=== PATIENT | female | born 1955 | race Caucasian/White ===

== ENCOUNTER 2024-05-02 11:14 | Observation (INO) ==
--- NOTE | 2024-05-02 11:42 | ED.PDOC ---
General ED Provider: Dr. SHANT HANCOCK MD Chief Complaint: Respiratory Complaint Stated Complaint: 68 yo WF complains of a head cold for 1.5 weeks that involves blowing her nose, nasal drainage and now had gone down to her lungs. Coughing a lot at time and productive of some yellow sputum. Some wheezing. No fever. No headache or chest pain. Known COPD and still smokes 1 PPD. Uses Breztri as maintainence and a rescue inhaler she occ uses once or twice daily as needed. No flu vaccine. Hx of heart ablation. No DM. Hx of HTN and lipid problem. Time Seen by Provider: 05/02/24 11:17 Mode of Arrival: Walk-In Information Source: Patient Exam Limitations: No limitations Referred to ED by: Other (Self) Nursing and Triage Documentation Reviewed and Agree: Yes Does Patient Take Opioids?: No What is Opioid Naive?: *Opioid Naive implies the patient is not already taking opioids or not chronically receiving opioids on a daily basis. *PRN dosing is not "usually" associated with tolerance. *Patients are at higher risk of over-sedation and aspiration. What is Opioid Tolerant?: *Opioid Tolerance implies less than the expected response to an opioid. *Acquired tolerance is defined by the patient taking 60mg of oral morphine daily (or equianalgesic dose of another opioid) for 1 week or more. *Often associated with chronic pain. *May take more than usual dose to achieve desired pain control. Review of Systems Review Of Systems Constitutional: Denies Chills, Diaphoresis, Fever, Sweats or Loss of appetite Eyes: Reports No symptoms and Photophobia Ears, Nose, Mouth, Throat: Denies Ear pain, Ear discharge, Nose discharge or Throat pain Respiratory: Reports Cough, Shortness of Breath and Wheezing Cardiac: Denies Chest pain or Edema GI: Reports Abdominal pain (abdominal pain yesterday but none currently) and Diarrhea : Denies Burning or Dysuria Musculoskeletal: Reports No symptoms Skin: Reports No symptoms Neurological: Denies Anxiety, Cognitive dysfunction or Headache [facility] Medical History Tachycardia R00.0 - Tachycardia, unspecified (ICD-10) COPD (chronic obstructive pulmonary disease) J44.9 - Chronic obstructive pulmonary disease, unspecified (ICD-10) Hyperlipidemia E78.5 - Hyperlipidemia, unspecified (ICD-10) Hypertension I10 - Essential (primary) hypertension (ICD-10) Female Reproductive History Menstrual Hx Hysterectomy: Yes Hx Tubal Ligation: No Physical Exam Physical Exam Appearance: Reports No pain distress and Well-nourished Ill-appearing: None Pain Distress: None Eyes: Reports EOMI and Conjunctiva clear ENT: Reports Nose normal and Oropharynx normal Neck: Supple Respiratory: Reports Breath sounds equal, Breath sounds diminished (Markedly diminished breath sounds) and Wheezes Cardiovascular: Reports RRR, Pulses normal, No rub and No murmur GI/: Reports Soft, Nontender and No masses Musculoskeletal: Reports Normal strength, ROM intact and No edema Skin: Reports Warm and Normal color Neurological: Reports Sensation intact, Motor intact, Cranial nerves intact and Oriented Psychiatric: Reports Affect appropriate and Mood appropriate Interpretation EKG Interpretation EKG Interpretation By: ED Physician Time of EKG #1: 12:44 Rate: Normal Rhythm: Sinus Ectopy: None [place]: [place] ST Segment: Normal Interpretation: NSR, Normal axis, Septal infarct, age undetermined, Abnormal EKG Course Course 05/02/24 11:40 05/02/24 11:40 Orders, Labs, Meds: Lab Review 05/02/24 05/02/24 11:35 11:40 WBC 8.71 RBC 4.15 L Hgb 12.2 Hct 35.6 L MCV 85.8 MCH 29.4 MCHC 34.3 RDW Coeff of Rosa 11.0 L Plt Count 227 Immature Gran % (Auto) 0.8 Neut % (Auto) 70.7 Lymph % (Auto) 21.1 [place] % (Auto) 6.5 Eos % (Auto) 0.6 Baso % (Auto) 0.3 Neut # (Auto) 6.2 Lymph # (Auto) 1.8 [place] # (Auto) 0.6 Eos # (Auto) 0.1 Baso # (Auto) 0.0 Immature Gran # (Auto) 0.1 Sodium 120.7 L Potassium 4.19 Chloride 85.1 L Carbon Dioxide 29.2 Anion Gap 10.59 BUN 8.8 Creatinine 0.75 Estimated GFR (MDRD) 77.00 BUN/Creatinine Ratio 11.73 Glucose 119.1 H Calcium 8.76 Total Bilirubin 0.68 AST 32.5 ALT 19.4 Alkaline Phosphatase 113.8 Troponin I < 0.012 Total Protein 7.85 Albumin 4.30 Globulin 3.55 Albumin/Globulin Ratio 1.21 Influ A Molecular Assay Negative by naat Influ B Molecular Assay Negative by naat SARS CoV-2 RNA Rapid LUIS FERNANDO Negative Orders Category Date Time Status EKG-(ED ONLY) Stat CARDIO 05/02/24 12:39 Completed NEBULIZER TREATMENT Routine CARDIO 05/02/24 12:35 Completed Saline Lock [ED IV/MEDIPORT/POWERPORT] .ONCE EMERGENCY 05/02/24 11:31 Active CBC W/ AUTO DIFF Stat LAB 05/02/24 11:40 Completed CMP [COMPREHENSIVE METABOLIC PANEL] Stat LAB 05/02/24 11:40 Completed COVID [SARS COV-2 RNA RAPID LUIS FERNANDO] Stat LAB 05/02/24 11:35 Completed FLU A & B MOLECULAR [FLU A/B MOLECULAR] Stat LAB 05/02/24 11:35 Completed TROPONIN I Stat LAB 05/02/24 11:40 Completed 0.9 % Sodium Chloride [Saline Flush] Meds 05/02/24 11:31 Active 1 syr IVF PRN PRN Albuterol Sulfate 0.083% Neb [Albuterol 0.083% Neb] Meds 05/02/24 13:00 Active 2.5 mg NEB Q30MIN Ipratropium/Albuterol Neb [Duoneb] Meds 05/02/24 11:31 Discontinued 3 ml NEB ONCE ONE Methylprednisolone Sod Succ/Pf [Solu-Medrol 40 mg] Meds 05/02/24 11:31 Discontinued 80 mg IVP ONCE ONE Ondansetron HCl/Pf [Zofran Sdv] Meds 05/02/24 12:04 Discontinued 4 mg IVP ONCE ONE Sodium Chloride 0.9% [Sodium Chloride] 1,000 ml Meds 05/02/24 12:33 Active IV 250 mls/hr CHEST, 2 VIEWS PA & LAT Stat RADS 05/02/24 11:31 Completed Medications Generic Name Dose Route Start Last Admin Trade Name Freq PRN Reason Stop Dose Admin Albuterol Sulfate 2.5 mg 05/02/24 13:00 05/02/24 13:53 Albuterol Sulfate 0.083% Vial.Neb NEB 2.5 mg Q30MIN ANAYA Administration Sodium Chloride 1,000 mls @ 250 mls/hr 05/02/24 12:33 05/02/24 13:58 Sodium Chloride IV 05/02/24 16:32 250 mls/hr .Q4H ONE Administration Sodium Chloride 1 syr 05/02/24 11:31 05/02/24 11:53 0.9% Sodium Chloride 10 Ml Disp.Syrin IVF 1 syr PRN PRN Administration To flush IV Discontinued Medications Generic Name Dose Route Start Last Admin Trade Name Freq PRN Reason Stop Dose Admin Albuterol/Ipratropium 3 ml 05/02/24 11:31 05/02/24 11:54 Ipratropium/Albuterol Vial.Neb NEB 05/02/24 11:32 3 ml ONCE ONE Administration Methylprednisolone Sodium Succinate 80 mg 05/02/24 11:31 05/02/24 11:52 Methylprednisolone Sod Succ/Pf 40 Mg/Ml Vial IVP 05/02/24 11:32 80 mg ONCE ONE Administration Ondansetron HCl 4 mg 05/02/24 12:04 05/02/24 12:07 Ondansetron Hcl/Pf 4 Mg/2 Ml Sdv IVP 05/02/24 12:05 4 mg ONCE ONE Administration I placed my stethoscope in her ear and have her listen to her lungs compared to mine and discussed lung lungs is "disappearing" in term of surface area for gas exchange to impart the meaning of what she is doing when she continues to smoke. Vital Signs: Temp Pulse Resp BP Pulse Ox 05/02/24 11:18 97.5 F L 76 20 185/84 H 99 Discharge Plan Discharge Patient Disposition: PLACED OBSERVATION Discharge Problem: Acute exacerbation of chronic obstructive pulmonary disease, Chronic hyponatremia Prescriptions: No Action multivitamin [Daily Multi-Vitamin] Tablet 1 tab PO DAILY C Complex 1,000 mg tablet extended release 1,000 mg PO DAILY albuterol sulfate 90 mcg/actuation aerosol powdr breath activated 2 inh inhalation Q4-6H PRN (Reason: SHORT OF BREATH/WHEEZING) aspirin [Aspirin Childrens] 81 mg tablet,chewable 81 mg PO DAILY dicyclomine 20 mg tablet 20 mg PO QID PRN (Reason: abdominal pain/cramping) Qty: 10 0RF potassium chloride 10 mEq Tablet Extended Release 10 meq PO DAILY omeprazole 40 mg Capsule,Delayed Release(Dr/Ec) 40 mg PO DAILY telmisartan 80 mg Tablet 80 mg PO DAILY estradiol 2 mg Tablet 2 mg PO DAILY hydrochlorothiazide 12.5 mg Tablet 12.5 mg PO DAILY metoprolol succinate 50 mg tablet extended release 24 hr 50 mg PO DAILY Pattieztri Aerosphere 160-9-4.8 mcg/actuation HFA aerosol inhaler 2 inh inhalation BID Did you review [place] [employer] for ALL controlled substances?: Not Applicable ED Provider: SHANT HANCOCK Condition: Fair Physician Progress Note: Some better. Reluctantly she agreed to stay at least overnight. Was supposed to work tomorrow as her boss wanted to take the day off. She is also more hyponatremia but only on 12.5 mg of HCTZ daily. She is getting some NS at 125 cc/hr
[2024-05-02 11:44] LABS: BASOPHILS % (AUTO) 0.3 % (0.0-3.0); EOSINOPHILS # (AUTO) 0.1 K/ul (0.0-0.7); EOSINOPHILS % (AUTO) 0.6 % (0.0-7.0); HEMATOCRIT 35.6 % (37.0-47.0); HEMOGLOBIN 12.2 g/dl (12.0-16.0); IMMATURE GRANULOCYTE # (AUTO) 0.1 (0.0-1.0); IMMATURE GRANULOCYTE % (AUTO) 0.8 % (0.0-5.0); LYMPHOCYTES # (AUTO) 1.8 K/uL (0.60-3.4); LYMPHOCYTES % (AUTO) 21.1 (10.0-50.0); MEAN CORPUSCULAR HEMOGLOBIN 29.4 pg (27.0-31.0); MEAN CORPUSCULAR HGB CONC 34.3 (31.8-35.4); MEAN CORPUSCULAR VOLUME 85.8 fl (81.0-99.0); MONOCYTES # (AUTO) 0.6 K/uL (0.4-2.0); MONOCYTES % (AUTO) 6.5 (0-10); NEUTROPHILS # (AUTO) 6.2 K/ul (2.0-6.9); NEUTROPHILS % (AUTO) 70.7 % (42.2-75.2); PLATELET COUNT 227 10^3/uL (140-440); RED BLOOD COUNT 4.15 10^6/ul (4.20-5.40); WHITE BLOOD COUNT 8.71 K/ul (4.6-10.2)
[2024-05-02] MEDS: SOLU-MEDROL 40 MG IVP ONE (11:52)
[2024-05-02] MEDS: DUONEB NEB ONE (11:54)
[2024-05-02 11:56] LABS: ALANINE AMINOTRANSFERASE 19.4 U/L (0-35); ALKALINE PHOSPHATASE 113.8 U/L (53-141); ASPARTATE AMINO TRANSFERASE 32.5 U/L (14-36); BILIRUBIN,TOTAL 0.68 mg/dL (0.2-1.3); BLOOD UREA NITROGEN 8.8 mg/dL (7-17); CALCIUM 8.76 mg/dL (8.4-10.2); CARBON DIOXIDE 29.2 mmol/L (22-30.0); CHLORIDE 85.1 mmol/L (98-107); CREATININE 0.75 mg/dL (0.60-1.30); GLUCOSE 119.1 mg/dL (74-106); POTASSIUM 4.19 mmol/L (3.5-5.1); SODIUM 120.7 mmol/L (134.5-145); TOTAL PROTEIN 7.85 g/dL (6.3-8.2)
[2024-05-02 12:01] LABS: MOLECULAR FLU A NEGATIVE BY NAAT (NEGATIVE); MOLECULAR FLU B NEGATIVE BY NAAT (NEGATIVE); SARS COV-2 RNA RAPID NAAT NEGATIVE (NEGATIVE)
[2024-05-02] MEDS: ZOFRAN SDV IVP ONE (12:07)
[2024-05-02 12:09] LABS: TROPONIN I < 0.012 ng/ml (0.0000-0.120)
[2024-05-02] MEDS: ALBUTEROL 0.083% NEB NEB SCH (13:07)
--- NOTE | 2024-05-02 13:48 | DI ---
EXAM: CHEST TWO-VIEW HISTORY: Chronic obstructive pulmonary disease COMPARISON: 02/25/2024 FINDINGS: Cardiac silhouette and mediastinum are normal. Hyperinflation is noted. There is no pul monary infiltrate.There is no pleural effusion. Skeletal structures unremarkable IMPRESSION: Chronic obstructive pulmonary disease with no acute cardiopulmonary process.
[2024-05-02] MEDS: SODIUM CHLORIDE 1,000 ML IV ONE (13:58)
[2024-05-02] MEDS ORDERED: ALBUTEROL 0.083% NEB NEB PRN (14:47)
--- NOTE | 2024-05-02 14:53 | PCM ---
Date of Service Date Seen by Provider: 05/02/24 Admit Day/Time Admission Date: 05/02/24 Reason for Admission Chief Complaint: COPD EXACERBATION/HYPONATREMIA Hospital Provider Hospital Provider[facility] History of Present Illness History of Present Illness: 68 yo female presented to the ER with complaints of cough, congestion, and sore throat x 2 weeks. States initially started as sinus and feels it has now settled into her chest. Denies any fever, chills, body aches. Reports cough is producti ve with yellow brown sputum. Had episode of vomiting and 3 episodes of diarrhea this am as well. Work-up negative for acute infection. Likely COPD exacerbation. Patient also reports weakness and fatigue. Found to have sodium of 120. Admitted to med/surg observation. Case Discussed With Case Discussed With: Patient's case was discussed with the ER Physicians, Dr. Ganonn. [facility] Medical History (Updated 05/02/24 @ 14:54 by THOMAS THOMAS) IBS (irritable bowel syndrome) K58.9 - Irritable bowel syndrome, unspecified (ICD-10) Tachycardia R00.0 - Tachycardia, unspecified (ICD-10) COPD (chronic obstructive pulmonary disease) J44.9 - Chronic obstructive pulmonary disease, unspecified (ICD-10) Hyperlipidemia E78.5 - Hyperlipidemia, unspecified (ICD-10) Hypertension I10 - Essential (primary) hypertension (ICD-10) Allergies Allergies Allergy/AdvReac Type Severity Reaction Status Date / Time codeine AdvReac Intermediate Vomiting Verified 05/02/24 11:21 Current Medications Home Medications estradiol 2 mg tablet 2 mg PO DAILY 06/22/21 [History Confirmed 05/02/24 Last Taken 05/02/24] hydrochlorothiazide 12.5 mg tablet 12.5 mg PO DAILY 06/22/21 [History Confirmed 05/02/24 Last Taken 05/02/24] omeprazole 40 mg capsule,delayed release 40 mg PO DAILY 06/22/21 [History Confirmed 05/02/24 Last Taken 05/02/24] potassium chloride 10 mEq tablet,extended release 10 meq PO DAILY 06/22/21 [History Confirmed 05/02/24 Last Taken 05/02/24] telmisartan 80 mg tablet 80 mg PO DAILY 06/22/21 [History Confirmed 05/02/24 Last Taken 05/02/24] budesonide 160 mcg-glycopyr 9 mcg-formot 4.8 mcg/actuation HFA inhaler (Breztri Aerosphere) 2 inh inhalation BID 09/13/22 [History Confirmed 05/02/24 Last Taken 05/02/24] metoprolol succinate 50 mg tablet,extended release 24 hr 25 mg PO DAILY 09/13/22 [History Confirmed 05/02/24 Last Taken 05/02/24] ascorbic acid (vitamin C) 1,000 mg tablet,extended release (C Complex) 1,000 mg PO DAILY 03/14/23 [History Confirmed 05/02/24 Last Taken 05/02/24] multivitamin (Daily Multi-Vitamin tablet) 1 tab PO DAILY 03/14/23 [History Confirmed 05/02/24 Last Taken 05/02/24] albuterol sulfate 90 mcg/actuation breath activated powder inhaler 2 inh inhalation Q4-6H PRN SHORT OF BREATH/WHEEZING 10/15/23 [History Confirmed 05/02/24 Last Taken 05/02/24] aspirin 81 mg chewable tablet (Aspirin Childrens) 81 mg PO DAILY 10/15/23 [History Confirmed 05/02/24 Last Taken 05/02/24] dicyclomine 20 mg tablet 20 mg PO QID PRN abdominal pain/cramping #10 tabs 02/25/24 [Rx Confirmed 05/02/24 Last Taken 05/02/24] Home Acetaminophen (Acetaminophen 325 Mg Tablet) 650 mg PO Q4H PRN PRN Reason: Mild Pain Albuterol Sulfate (Albuterol Sulfate 0.083% Vial.Neb) 2.5 mg NEB RTQ4H PRN PRN Reason: Wheezing Albuterol/Ipratropium (Ipratropium/Albuterol Vial.Neb) 3 ml NEB RTQ6H ANAYA Azithromycin (Azithromycin 250 Mg Tablet) 500 mg PO DAILY [facility] Stop: 05/05/24 14:59 Sodium Chloride (Sodium Chloride) 1,000 mls @ 250 mls/hr IV .Q4H ONE Stop: 05/02/24 16:32 Last Admin: 05/02/24 13:58 Dose: 250 mls/hr CEFTRIAXONE/D5W 1 GM PREMIX (Rocephin 1 Gm/50 Ml D5w) 1 gm in 50 mls @ 100 mls/hr IV DAILY ANAYA Stop: 05/05/24 14:59 Sodium Chloride (Sodium Chloride) 1,000 mls @ 100 mls/hr IV .Q10H [facility] Methylprednisolone Sodium Succinate (Methylprednisolone Sod Succ/Pf 40 Mg/Ml Vial) 40 mg IVP Q8HR [facility] Sodium Chloride (0.9% Sodium Chloride 10 Ml Disp.Syrin) 1 syr IVF PRN PRN PRN Reason: To flush IV Last Admin: 05/02/24 11:53 Dose: 1 syr Discontinued Medications Albuterol Sulfate (Albuterol Sulfate 0.083% Vial.Neb) 2.5 mg NEB Q30MIN ANAYA Last Admin: 05/02/24 13:53 Dose: 2.5 mg Albuterol/Ipratropium (Ipratropium/Albuterol Vial.Neb) 3 ml NEB ONCE ONE Stop: 05/02/24 11:32 Last Admin: 05/02/24 11:54 Dose: 3 ml Methylprednisolone Sodium Succinate (Methylprednisolone Sod Succ/Pf 40 Mg/Ml Vial) 80 mg IVP ONCE ONE Stop: 05/02/24 11:32 Last Admin: 05/02/24 11:52 Dose: 80 mg Ondansetron HCl (Ondansetron Hcl/Pf 4 Mg/2 Ml Sdv) 4 mg IVP ONCE ONE Stop: 05/02/24 12:05 Last Admin: 05/02/24 12:07 Dose: 4 mg Opioid Naive vs. Tolerant Does Patient Take Opioids?: No Is Patient Opioid Naive?: Yes What is Opioid Naive?: *Opioid Naive implies the patient is not already taking opioids or not chronically receiving opioids on a daily basis. *PRN dosing is not "usually" associated with tolerance. *Patients are at higher risk of over-sedation and aspiration. Is Patient Opioid Tolerant?: No What is Opioid Tolerant?: *Opioid Tolerance implies less than the expected response to an opioid. *Acquired tolerance is defined by the patient taking 60mg of oral morphine daily (or equianalgesic dose of another opioid) for 1 week or more. *Often associated with chronic pain. *May take more than usual dose to achieve desired pain control. Review of Systems Constitutional: Reports Weakness Head: Reports Normocephalic Eyes: Reports No symptoms Ears: Reports No symptoms Nose: Reports Congestion Mouth: Reports No symptoms Throat: Reports No symptoms Cardiovascular: Reports No symptoms Respiratory: Reports Cough and Shortness of air Gastrointestinal: Reports No symptoms Genitourinary: Reports No Symptoms Musculoskeletal: Reports No symptoms Endocrine: Reports No symptoms Hematology: Reports No symptoms Immunology: Reports No symptoms Neurological: Reports No symptoms Psychiatric: Reports No symptoms Physical examination Most Recent Vital Signs: Most Recent Vital Signs Temperature 97.5 F L 05/02/24 11:18 Temperature Source Infrared 05/02/24 11:18 Pulse Rate 76 05/02/24 11:18 Respiratory Rate 20 05/02/24 11:18 Blood Pressure 185/84 H 05/02/24 11:18 O2 Sat by Pulse Oximetry 99 05/02/24 11:18 Height 5 ft 8 in 05/02/24 11:18 Weight 82.8 kg 05/02/24 11:18 Appearance: Positive No Apparent Distress and Alert and Oriented x3 Skin: Positive Warm and Good Turgor HEENT: Positive Normocephalic and PERRLA Neck: Positive Supple and Midline Trachea Chest/Lungs: Positive Symmetrical With Equal Breath Sounds and Clear to Auscultation Bilaterally (diminished) Heart: Positive RRR and Pulses Normal GI/: Positive Soft, Nontender, Bowel Sounds Normal, No Distention and No Organomegaly Musculoskeletal: Positive Not Examined Extremities: Positive Intact Peripheral Pulses, Stable Joints Without Laxity and Good ROM in All Joints Neurological: Positive Sensation Intact, Motor intact, Alert, Oriented and Muscle Strength 5/5 in Upper and Lower Extremities Bilaterally Labs This Visit Labs This Visit: Labs This Visit 05/02/24 05/02/24 11:35 11:40 WBC 8.71 RBC 4.15 L Hgb 12.2 Hct 35.6 L MCV 85.8 MCH 29.4 MCHC 34.3 RDW Coeff of Rosa 11.0 L Plt Count 227 Immature Gran % (Auto) 0.8 Neut % (Auto) 70.7 Lymph % (Auto) 21.1 [facility] % (Auto) 6.5 Eos % (Auto) 0.6 Baso % (Auto) 0.3 Neut # (Auto) 6.2 Lymph # (Auto) 1.8 [facility] # (Auto) 0.6 Eos # (Auto) 0.1 Baso # (Auto) 0.0 Immature Gran # (Auto) 0.1 Sodium 120.7 L Potassium 4.19 Chloride 85.1 L Carbon Dioxide 29.2 Anion Gap 10.59 BUN 8.8 Creatinine 0.75 Estimated GFR (MDRD) 77.00 BUN/Creatinine Ratio 11.73 Glucose 119.1 H Calcium 8.76 Total Bilirubin 0.68 AST 32.5 ALT 19.4 Alkaline Phosphatase 113.8 Troponin I < 0.012 Total Protein 7.85 Albumin 4.30 Globulin 3.55 Albumin/Globulin Ratio 1.21 Influ A Molecular Assay Negative by naat Influ B Molecular Assay Negative by naat SARS CoV-2 RNA Rapid LUIS FERNANDO Negative Imaging Imaging: EXAM: CHEST TWO-VIEW FINDINGS: Cardiac silhouette and mediastinum are normal. Hyperinflation is noted. There is no pulmonary infiltrate.There is no pleural effusion. Skeletal structures unremarkable IMPRESSION: Chronic obstructive pulmonary disease with no acute cardiopulmonary process. Review Statement Review Statement: I have independently reviewed and interpreted the labs/EKGs/imaging that were ordered by the ER provider. I have reviewed all outside records that are available currently in our EMR including imaging/notes/labs from previous visits. Plan Plan: 1. Acute Hyponatremia - NS@250mL/hr x 1 liter then NS@100mL/hr, osmolalities ordered, hold diuretics 2. COPD Exacerbation - rocephin, azith, steroids, nebs 3. Hypertension - chronic, continue home medications 4. Hyperlipidemia - chronic, continue home medications 5. GERD/IBS - chronic, continue home medications DVT Prophylaxis: Ambulation Time Spent: Greater than 80 minutes spent with patient, 50% of the time spent with this patient was devoted to counseling and coordination of care. [facility] minutes spent discussing advance care planning. Disposition: Admit to: Med/Surg Observation Discussed Plan of Care with Dr. Linda Israel. Medications Medication Orders: Medications Ordered Category Date Time Status 0.9 % Sodium Chloride [Saline Flush] Meds 05/02/24 11:31 Active 1 syr IVF PRN PRN Acetaminophen [Tylenol] Meds 05/02/24 14:45 Active 650 mg PO Q4H PRN Albuterol Sulfate 0.083% Neb [Albuterol 0.083% Neb] Meds 05/02/24 14:47 Active 2.5 mg NEB RTQ4H PRN Azithromycin [Zithromax] Meds 05/02/24 15:00 Active 500 mg PO DAILY Ceftriaxone/D5w 1 gm Premix [Rocephin 1 gm/50 ml D5w] Meds 05/02/24 15:00 Active 1 gm in 50 ml IV DAILY Ipratropium/Albuterol Neb [Duoneb] Meds 05/02/24 18:00 Active 3 ml NEB RTQ6H Methylprednisolone Sod Succ/Pf [Solu-Medrol 40 mg] Meds 05/02/24 21:00 Active 40 mg IVP Q8HR Sodium Chloride 0.9% [Sodium Chloride] 1,000 ml Meds 05/02/24 15:00 Active IV 100 mls/hr Sodium Chloride 0.9% [Sodium Chloride] 1,000 ml Meds 05/02/24 12:33 Active IV 250 mls/hr
[2024-05-02] MEDS ORDERED: DICYCLOMINE 20 MG PO PRN (15:28)
[2024-05-02] MEDS: ZITHROMAX PO SCH (15:39)
[2024-05-02] MEDS: ROCEPHIN 1 GM/50 ML D5W 1 GM/50 ML BAG IV SCH (15:40)
[2024-05-02 16:23] VITALS: BMI 27.1
[2024-05-02] MEDS: DUONEB NEB SCH (17:43)
[2024-05-02] MEDS: SODIUM CHLORIDE 1,000 ML IV SCH (18:37)
[2024-05-02] MEDS: SYMBICORT 160-4.5 MCG INHALER IH SCH (20:04)
[2024-05-02] MEDS: SOLU-MEDROL 40 MG IVP SCH (20:04)
[2024-05-02 20:58] LABS: BLOOD UREA NITROGEN 9.7 mg/dL (7-17); CALCIUM 8.79 mg/dL (8.4-10.2); CREATININE 0.7 mg/dL (0.60-1.30); GLUCOSE 180.6 mg/dL (74-106); POTASSIUM 4.21 mmol/L (3.5-5.1); SODIUM 124.7 mmol/L (134.5-145)
[2024-05-02] MEDS ORDERED: NON-FORMULARY MEDICATION (Budesonide-Glycopyr-Formoterol [Breztri Aerosphere] 160-9-4.8 mc IH SCH (21:00)
[2024-05-03] MEDS: TYLENOL PO PRN (00:33)
[2024-05-03 05:07] LABS: BASOPHILS % (AUTO) 0.2 % (0.0-3.0); EOSINOPHILS % (AUTO) 0.3 % (0.0-7.0); HEMOGLOBIN 12.2 g/dl (12.0-16.0); IMMATURE GRANULOCYTE # (AUTO) 0.1 (0.0-1.0); IMMATURE GRANULOCYTE % (AUTO) 0.9 % (0.0-5.0); LYMPHOCYTES # (AUTO) 1.1 K/uL (0.60-3.4); LYMPHOCYTES % (AUTO) 17.3 (10.0-50.0); MEAN CORPUSCULAR HEMOGLOBIN 29.3 pg (27.0-31.0); MEAN CORPUSCULAR HGB CONC 33.9 (31.8-35.4); MEAN CORPUSCULAR VOLUME 86.5 fl (81.0-99.0); MONOCYTES # (AUTO) 0.1 K/uL (0.4-2.0); MONOCYTES % (AUTO) 1.9 (0-10); NEUTROPHILS # (AUTO) 5.2 K/ul (2.0-6.9); NEUTROPHILS % (AUTO) 79.4 % (42.2-75.2); PLATELET COUNT 216 10^3/uL (140-440); RDW COEFFICIENT OF VARIATION 10.9 % (11.6-14.8); RED BLOOD COUNT 4.16 10^6/ul (4.20-5.40); WHITE BLOOD COUNT 6.48 K/ul (4.6-10.2)
[2024-05-03 05:22] LABS: ALANINE AMINOTRANSFERASE 21.8 U/L (0-35); ALBUMIN 4.37 g/dL (3.5-5.0); ALKALINE PHOSPHATASE 101.4 U/L (53-141); ASPARTATE AMINO TRANSFERASE 27.1 U/L (14-36); BILIRUBIN,TOTAL 0.39 mg/dL (0.2-1.3); BLOOD UREA NITROGEN 8.2 mg/dL (7-17); CALCIUM 8.79 mg/dL (8.4-10.2); CARBON DIOXIDE 24.6 mmol/L (22-30.0); CHLORIDE 92.9 mmol/L (98-107); CREATININE 0.68 mg/dL (0.60-1.30); GLUCOSE 158.4 mg/dL (74-106); POTASSIUM 4.71 mmol/L (3.5-5.1); TOTAL PROTEIN 7.87 g/dL (6.3-8.2)
[2024-05-03] MEDS: PRILOSEC PO SCH (05:22)
[2024-05-03 05:25] VITALS: RESP 18
[2024-05-03] MEDS ORDERED: TOPROL XL PO SCH (09:00)
[2024-05-03] MEDS ORDERED: NON-FORMULARY MEDICATION (Multivitamin [Daily Multi-Vitamin] tablet) PO SCH (09:00)
[2024-05-03] MEDS ORDERED: SPIRIVA IH SCH (09:00)
[2024-05-03] MEDS: ESTRADIOL 2 MG PO SCH (09:00)
[2024-05-03] MEDS: MICARDIS PO SCH (09:08)
[2024-05-03] MEDS: TOPROL XL PO SCH (09:09)
[2024-05-03] MEDS: MULTIVITAMIN TABLET PO SCH (09:09)
[2024-05-03] MEDS: BENTYL PO PRN (10:32)
[2024-05-03 10:34] VITALS: BP 159/86; PULSE 88; TEMP 97.7
[2024-05-03] MEDS: ZOFRAN SDV IVP PRN (10:39)
--- NOTE | 2024-05-03 12:20 | DCSUM ---
Admission Date Admission Date: 05/02/24 Discharge Date Discharge Date: 05/03/24 Admission Diagnosis Admission Diagnosis: 1. Acute Hyponatremia 2. COPD Exacerbation Discharge Diagnosis Discharge Diagnosis: 1. Acute Hyponatremia - Improving 2. COPD Exacerbation - Improving 3. Hypertension - chronic, stable, held HCTZ until resumed by PCP 4. Hyperlipidemia - chronic, stable 5. GERD/IBS - chronic, stable Hospital Provider Hospital Provider: THOMAS THOMAS, [facility] Summary of History and Physical Summary of History and Physical: 68 yo female presented to the ER with complaints of cough, congestion, and sore throat x 2 weeks. States initially started as sinus and feels it has now settled into her chest. Denies any fever, chills, body aches. Reports cough is productive with yellow brown sputum. Had episode of vomiting and 3 episodes of diarrhea this am as well. Work-up negative for acute infection. Likely COPD exacerbation. Patient also reports weakness and fatigue. Found to have sodium of 120. Admitted to med/surg observation. Hospital Course Subjective: During stay, patient received NS@100mL/hr for treatment of hyponatremia. Initially was 120 and increased to 126 this am. Patient requested discharge upon rounds. Discussed this provider would feel more comfortable with discharge if sodium was near 130 range. Patient agreeable to stay for further hydration. Repeat bmp at 1300 showed sodium of 129. Weakness has resolved and patient is feeling much better at this time. Discussed to increase salt in the diet over the next few days and to hold off on taking HCTZ until resumed by PCP at follow- up appointment. Osmolalities collected and pending. Likely will be appropriate and sodium is low due to diuretic use. She was also treated for COPD excerbation with rocephin and azithromycin, steroids, and nebs. Lung sounds initially were diminished and have improved greatly this am. Patient reports breathing is much easier and does not feel as winded on exertion. No further changes to home medications VSS. Rx sent for augmentin, azithromycin, nebs, and steroids. Recommend follow up with pcp this week or early next week. Appearance: Pleasant, No Apparent Distress and Alert HEENT: MMM, Supple and No JVD CVS: No Murmur Abdomen: Soft, Non-Tender and No Distention Respiratory: No Dyspnea Extremities: No Edema Vital Signs: Most Recent Vital Signs Temperature 97.7 F 05/03/24 10:00 Temperature Source Temporal Artery Scan 05/03/24 10:00 Temperature Source Infrared 05/02/24 11:18 Pulse Rate 88 05/03/24 10:00 Respiratory Rate 18 05/03/24 10:00 Blood Pressure 159/86 H 05/03/24 10:00 Blood Pressure Mean 110 05/03/24 10:00 Blood Pressure Right Arm 176/99 05/02/24 15:10 Blood Pressure Location Right Arm 05/03/24 10:00 Blood Pressure Position Sitting 05/03/24 10:00 O2 Sat by Pulse Oximetry 96 05/03/24 10:00 Oxygen Delivery Method Room Air 05/03/24 11:00 Height 5 ft 8 in 05/02/24 15:10 Weight 81 kg 05/02/24 15:10 Telemetry Type Remote Telemetry 05/03/24 07:00 Telemetry Monitoring Continues 05/03/24 07:00 Telemetry Heart Rate 81 05/03/24 07:00 Telemetry SPO2 94 05/03/24 07:00 EKG OK Interval 0.20 05/03/24 07:00 EKG QRS Interval 0.07 05/03/24 07:00 Telemetry Strip Reading NSR 05/03/24 07:00 Imaging: EXAM: CHEST TWO-VIEW HISTORY: Chronic obstructive pulmonary disease COMPARISON: 02/25/2024 FINDINGS: Cardiac silhouette and mediastinum are normal. Hyperinflation is noted. There is no pulmonary infiltrate.There is no pleural effusion. Skeletal structures unremarkable IMPRESSION: Chronic obstructive pulmonary disease with no acute cardiopulmonary process. Lab Results Last 24 Hours: 05/03/24 05/02/24 04:49 20:00 WBC 6.48 RBC 4.16 L Hgb 12.2 Hct 36.0 L MCV 86.5 MCH 29.3 MCHC 33.9 RDW Coeff of Rosa 10.9 L Plt Count 216 Immature Gran % (Auto) 0.9 Neut % (Auto) 79.4 H Lymph % (Auto) 17.3 Shoshone % (Auto) 1.9 Eos % (Auto) 0.3 Baso % (Auto) 0.2 Neut # (Auto) 5.2 Lymph # (Auto) 1.1 Shoshone # (Auto) 0.1 L Eos # (Auto) 0.0 Baso # (Auto) 0.0 Immature Gran # (Auto) 0.1 Sodium 126.0 L 124.7 L Potassium 4.71 4.21 Chloride 92.9 L 91.0 L Carbon Dioxide 24.6 20.0 L D Anion Gap 13.21 17.91 BUN 8.2 9.7 Creatinine 0.68 0.70 Estimated GFR (MDRD) 86.00 83.00 BUN/Creatinine Ratio 12.05 13.85 Glucose 158.4 H 180.6 H D Calcium 8.79 8.79 Total Bilirubin 0.39 AST 27.1 ALT 21.8 Alkaline Phosphatase 101.4 Total Protein 7.87 Albumin 4.37 Globulin 3.50 Albumin/Globulin Ratio 1.24 Discharge Instructions Discharge Planning: Discharge Planning > 40 minutes If patient is discharged with left ventricular systolic dysfunction: no Discharged with a beta jose? [] If no, why not? [] Discharged with an etta/arb? [] If no, why not? [] Diagnosis: Hyponatremia (Low sodium), COPD Diet: Regular, increase salt intake over the next few days Activity: as tolerated Medications: [facility]annister drugs 2, stop taking HCTZ until resumed by PCP Follow-up with PCP later this week or beginning of next week. Discharge Medications: Medications at Discharge (Home Meds & RX) estradiol 2 mg tablet 2 mg PO DAILY 06/22/21 hydrochlorothiazide 12.5 mg tablet 12.5 mg PO DAILY 06/22/21 omeprazole 40 mg capsule,delayed release 40 mg PO DAILY 06/22/21 potassium chloride 10 mEq tablet,extended release 10 meq PO DAILY 06/22/21 telmisartan 80 mg tablet 80 mg PO DAILY 06/22/21 budesonide 160 mcg-glycopyr 9 mcg-formot 4.8 mcg/actuation HFA inhaler (Breztri Aerosphere) 2 inh inhalation BID 09/13/22 metoprolol succinate 50 mg tablet,extended release 24 hr 25 mg PO DAILY 09/13/22 ascorbic acid (vitamin C) 1,000 mg tablet,extended release (C Complex) 1,000 mg PO DAILY 03/14/23 multivitamin (Daily Multi-Vitamin tablet) 1 tab PO DAILY 03/14/23 albuterol sulfate 90 mcg/actuation breath activated powder inhaler 2 inh inhalation Q4-6H PRN SHORT OF BREATH/WHEEZING 10/15/23 aspirin 81 mg chewable tablet (Aspirin Childrens) 81 mg PO DAILY 10/15/23 dicyclomine 20 mg tablet 20 mg PO QID PRN abdominal pain/cramping #10 tabs 02/25/24 augmentin 875-125mg PO BID #10 tabs azithromycin 500 mg PO daily #1 tab medrol pack take per package directions #21 tabs duoneb 3mL neb Q4-6H prn #90mL Discharge Plan Discharge Discharge Orders: Discharge Patient (ONCE); Ordered 05/03/24 Ordered By: KENDRA FIELD Activity Restrictions/Additional Instructions: Diagnosis: Hyponatremia (Low sodium), COPD Diet: Regular, increase salt intake over the next few days Activity: as tolerated Medications: Bannister drugs 2, stop taking HCTZ until resumed by PCP Follow-up with PCP later this week or beginning of next week. Instructions: Hyponatremia (GEN), COPD (Chronic Obstructive Pulmonary Disease) (GEN) Patient Disposition: HOME SELF-CARE Prescriptions: New azithromycin 500 mg tablet 500 mg PO DAILY 1 Days Qty: 1 0RF Rx Instructions: Take on 05/04/24 ipratropium-albuterol 0.5 mg-3 mg(2.5 mg base)/3 mL Solution For Nebulization 3 ml NEB Q4-6H PRN (Reason: shortness of breath or wheezing) Qty: 90 0RF amoxicillin-pot clavulanate 875-125 mg tablet 1 tab PO BID Qty: 10 0RF Rx Instructions: Start 05/04/24 methylprednisolone [Medrol (Jude)] 4 mg tablets,dose pack See Rx Instructions .ROUTE .COMPLEX Qty: 21 0RF Rx Instructions: for 6 days Continued multivitamin [Daily Multi-Vitamin] Tablet 1 tab PO DAILY C Complex 1,000 mg tablet extended release 1,000 mg PO DAILY albuterol sulfate 90 mcg/actuation aerosol powdr breath activated 2 inh inhalation Q4-6H PRN (Reason: SHORT OF BREATH/WHEEZING) aspirin [Aspirin Childrens] 81 mg tablet,chewable 81 mg PO DAILY dicyclomine 20 mg tablet 20 mg PO QID PRN (Reason: abdominal pain/cramping) Qty: 10 0RF potassium chloride 10 mEq Tablet Extended Release 10 meq PO DAILY omeprazole 40 mg Capsule,Delayed Release(Dr/Ec) 40 mg PO DAILY telmisartan 80 mg Tablet 80 mg PO DAILY estradiol 2 mg Tablet 2 mg PO DAILY metoprolol succinate 50 mg tablet extended release 24 hr 25 mg PO DAILY Breztri Aerosphere 160-9-4.8 mcg/actuation HFA aerosol inhaler 2 inh inhalation BID Discontinued hydrochlorothiazide 12.5 mg Tablet 12.5 mg PO DAILY Did you review [place] ASSIGNMENT MANAGER for ALL controlled substances?: No Discussed opioids are addictive and Narcan is available by prescription or from pharmacy.: No Condition: Fair
[2024-05-03 13:18] LABS: BLOOD UREA NITROGEN 8.8 mg/dL (7-17); CALCIUM 8.71 mg/dL (8.4-10.2); CARBON DIOXIDE 22.2 mmol/L (22-30.0); CHLORIDE 96.1 mmol/L (98-107); CREATININE 0.7 mg/dL (0.60-1.30); GLUCOSE 181.4 mg/dL (74-106); POTASSIUM 3.96 mmol/L (3.5-5.1)
== END 2024-05-03 14:38 | disposition home or self-care (01) ==
LOC: ED 11:14 → MEDSURG B 11:14
PROVIDERS: ADMIT Hospitalist; ATTEND Nurse Practitioner Family
DX: Z20.822 Contact with and (suspected) exposure to COVID-19; F17.210 Nicotine dependence, cigarettes, uncomplicated; I10 Essential (primary) hypertension; Z79.899 Other long term (current) drug therapy; Z51.81 Encounter for therapeutic drug level monitoring; K21.9 Gastro-esophageal reflux disease without esophagitis; K58.9 Irritable bowel syndrome, unspecified; J44.1 Chronic obstructive pulmonary disease with (acute) exacerbation; E87.1 Hypo-osmolality and hyponatremia; E78.5 Hyperlipidemia, unspecified